=== PATIENT | female | born 1985 | race Caucasian/White ===

== ENCOUNTER → 2022-08-16 11:33 | Outpatient (BNVA) | payer BC, SELFPAY | PROVIDERS: PCP Nurse Practitioner Family; Visit Provider Emergency Medicine | DX: M79.675 Pain in left toe(s) (principal); G89.29 Other chronic pain | CPT/HCPCS: 73630 ==

== ENCOUNTER → 2022-09-16 08:23 | Outpatient (BNVA) | payer BC, SELFPAY | PROVIDERS: PCP Nurse Practitioner Family; Visit Provider Podiatrist Foot & Ankle Surgery | DX: M76.72 Peroneal tendinitis, left leg (principal); M84.376A Stress fracture, unspecified foot, initial encounter for fracture | CPT/HCPCS: 73630 ==

== ENCOUNTER 2022-10-03 09:47 | Outpatient (CLI) | payer BC, SELFPAY ==
--- NOTE | 2022-10-03 10:15 | MR_ITS ---
WS: [id number] MRI LEFT FOOT without CONTRAST. COMPARISON: LEFT foot radiograph 09/16/2022. Multiplanar, multisequence imaging is performed without contrast. History: Pain in fifth metatarsal for 3 months. No injury. No marrow edema or fracture or healing fracture involving the fifth metatarsal. Marker is placed alberto g the mid fifth metatarsal diaphysis at site of pain. There is no soft tissue or bone abnormality. Th ere is no edema. No ligament or tendon abnormality identified. Achilles tendon is normal. MR/MR foot LT wo con* [id number] IMPRESSION: Negative MRI LEFT foot.
== END 2022-10-03 09:48 | disposition home or self-care (01) ==
PROVIDERS: PCP Nurse Practitioner Family; Visit Provider Podiatrist Foot & Ankle Surgery
DX: M79.672 Pain in left foot (principal); G89.29 Other chronic pain
CPT/HCPCS: 73718